=== PATIENT | female | born 1975 | race Caucasian/White ===

== ENCOUNTER 2017-07-03 17:26 | Emergency (ER) | payer OTHER ==
[~2017-07-03] VITALS: Ht 162.5 cm; Wt 154.2 kg
[~2017-07-03 17:26] MED LIST: CLARITIN10 MG PO; ZITHROMAX Z PA250 MG PO
[2017-07-03 17:42] VITALS: BP 121/65
[2017-07-03] MEDS ORDERED: PRINIVIL10 MG PO (17:44)
[2017-07-03] MEDS ORDERED: GLUCOPHAGE500 M1 PO (17:45)
[2017-07-03] MEDS ORDERED: NAPROSYN500 MG PO (17:53)
[2017-07-03] MEDS ORDERED: CHLORZOXAZONE500 M2 PO (17:53)
== END 2017-07-03 19:29 | disposition home or self-care (01) ==
LOC: ED 17:26
DX: M54.5 Low back pain (principal); F17.200 Nicotine dependence, unspecified, uncomplicated; Z98.890 Other specified postprocedural states; Z79.899 Other long term (current) drug therapy; W01.0XXA Fall on same level from slipping, tripping and stumbling without subsequent striking against object, initial encounter; Y93.89 Activity, other specified; Y92.89 Other specified places as the place of occurrence of the external cause; Y99.9 Unspecified external cause status

== ENCOUNTER 2017-09-08 23:35 | Emergency (ER) | payer OTHER ==
[~2017-09-08] VITALS: Ht 162.5 cm; Wt 140.6 kg
[~2017-09-08 23:35] MED LIST changes: +CHLORZOXAZONE500 M2 PO; +GLUCOPHAGE500 M1 PO; +NAPROSYN500 MG PO; +PRINIVIL10 MG PO
[2017-09-08 23:40] VITALS: BP 159/85
[2017-09-09] MEDS ORDERED: OMNICEF300 MG PO (01:15)
[2017-09-09] MEDS ORDERED: MEDROL DOSEPAK4 MG PO (01:15)
[2017-09-09] MEDS ORDERED: PROAIR HFA8.5 GM INH (01:15)
== END 2017-09-09 01:23 | disposition home or self-care (01) ==
LOC: ED 23:35
DX: J40 Bronchitis, not specified as acute or chronic (principal); H66.93 Otitis media, unspecified, bilateral; F17.200 Nicotine dependence, unspecified, uncomplicated; Z88.1 Allergy status to other antibiotic agents; Z79.899 Other long term (current) drug therapy

== ENCOUNTER 2017-11-01 17:13 | Emergency (ER) | payer OTHER ==
[~2017-11-01] VITALS: Ht 162.5 cm; Wt 133.8 kg
[~2017-11-01 17:13] MED LIST changes: +MEDROL DOSEPAK4 MG PO; +OMNICEF300 MG PO; +PROAIR HFA8.5 GM INH
[2017-11-01 17:15] VITALS: BP 150/99
[2017-11-01 18:07] LABS: BILIRUBIN NEGATIVE (NEGATIVE); BLOOD NEGATIVE (NEGATIVE); CLARITY SL CLOUDY (CLEAR); COLOR YELLOW (YELLOW); GLUCOSE 3+ (NEGATIVE); KETONE NEGATIVE (NEGATIVE); LEUKO ESTERASE NEGATIVE (NEGATIVE); NITRITE NEGATIVE (NEGATIVE); UROBILINOGEN 0.2 E.U./dl (0.2-1.0)
[2017-11-01] MEDS ORDERED: MEDROL DOSEPAK4 MG PO (18:08)
[2017-11-01] MEDS ORDERED: CYCLOBENZAPRINE10 MG PO (18:08)
[2017-11-01 18:40] LABS: EPITHELIAL CELLS 20-25; RBC 0-2 rbc/hpf (0-2); WBC 0-2 wbc/hpf (0-5); YEAST 1+
== END 2017-11-01 18:35 | disposition home or self-care (01) ==
LOC: ED 17:13
PROVIDERS: Emergency Medicine
DX: S39.012A Strain of muscle, fascia and tendon of lower back, initial encounter (principal); E11.9 Type 2 diabetes mellitus without complications; Z79.84 Long term (current) use of oral hypoglycemic drugs; Z88.1 Allergy status to other antibiotic agents; Z79.899 Other long term (current) drug therapy; W18.11XA Fall from or off toilet without subsequent striking against object, initial encounter; Y93.89 Activity, other specified; Y92.89 Other specified places as the place of occurrence of the external cause; Y99.8 Other external cause status

== ENCOUNTER 2018-11-11 11:37 | Emergency (ER) | payer OTHER ==
[~2018-11-11] VITALS: Ht 170.1 cm; Wt 150.2 kg
[~2018-11-11 11:37] MED LIST changes: +CYCLOBENZAPRINE10 MG PO; +PREDNISONE20 M1 PO
[2018-11-11 11:38] VITALS: BP 115/86
[2018-11-11] MEDS ORDERED: PREDNISONE50 MG PO (12:33)
== END 2018-11-11 13:42 | disposition home or self-care (01) ==
LOC: ED 11:37
DX: L25.9 Unspecified contact dermatitis, unspecified cause (principal); E11.9 Type 2 diabetes mellitus without complications; Z88.1 Allergy status to other antibiotic agents; Z79.899 Other long term (current) drug therapy

== ENCOUNTER → 2018-11-24 | Outpatient (CLI) | payer OTHER ==
[~2018-11-24] MED LIST changes: +PREDNISONE50 MG PO
--- NOTE | ~2018-11-24 | EKG ---
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
== END | disposition home or self-care (01) ==
LOC: RESCLI 00:19
DX: E11.9 Type 2 diabetes mellitus without complications (principal); R00.0 Tachycardia, unspecified; G47.30 Sleep apnea, unspecified; N92.6 Irregular menstruation, unspecified; E66.01 Morbid (severe) obesity due to excess calories; Z72.0 Tobacco use; Z71.6 Tobacco abuse counseling; Z91.09 Other allergy status, other than to drugs and biological substances; Z76.89 Persons encountering health services in other specified circumstances; Z79.899 Other long term (current) drug therapy

== ENCOUNTER → 2019-02-23 | Outpatient (CLI) | payer OTHER | END | disposition home or self-care (01) | LOC: RESCLI 01:58 | DX: E11.9 Type 2 diabetes mellitus without complications (principal); F17.200 Nicotine dependence, unspecified, uncomplicated; E66.01 Morbid (severe) obesity due to excess calories; E55.9 Vitamin D deficiency, unspecified; M79.672 Pain in left foot; G89.29 Other chronic pain; Z91.09 Other allergy status, other than to drugs and biological substances; Z71.6 Tobacco abuse counseling; Z79.899 Other long term (current) drug therapy ==

== ENCOUNTER → 2019-11-16 | Outpatient (CLI) | payer OTHER | END | disposition home or self-care (01) | LOC: COVID19 13:41 | DX: Z03.818 Encounter for observation for suspected exposure to other biological agents ruled out (principal) ==